=== PATIENT | female | born 1955 | race Caucasian/White ===

== ENCOUNTER → 2019-06-22 | Outpatient (CLI) | payer OTHER | END | disposition home or self-care (01) | LOC: PREOP 06:38 | PROVIDERS: ATTEND Surgery | DX: Z01.818 Encounter for other preprocedural examination (principal) ==

== ENCOUNTER 2019-07-21 05:36 | Outpatient (CLI) | payer OTHER ==
[~2019-07-21] VITALS: Ht 167.6 cm; Wt 70.3 kg
== END 2019-07-21 16:01 ==
LOC: PREOP 05:36
PROVIDERS: ATTEND Surgery
DX: Z01.818 Encounter for other preprocedural examination (principal)

== ENCOUNTER 2019-07-27 07:17 | Day surgery (SDC) | payer OTHER ==
[~2019-07-27] VITALS: Ht 167.6 cm; Wt 70.3 kg
[~2019-07-27 07:17] MED LIST: LACTATED RINGERS 1,000 ML IV ONE
[2019-07-27] MEDS ORDERED: ATROPINE INJ 0.4 MG/ML SDV IV ONE (07:18)
[2019-07-27] MEDS ORDERED: PROPOFOL INJECTION 50 ML IV ONE (07:25)
[2019-07-27] MEDS ORDERED: MIDAZOLAM 2 MG/2 ML (VERSED) VIAL ONE (07:25)
[2019-07-27 07:35] VITALS: BP 137/89
[2019-07-27] MEDS ORDERED: LACTATED RINGERS 1,000 ML IV STA (07:40)
[2019-07-27 08:35] VITALS: BP 142/87
[2019-07-27 08:40] VITALS: BP 139/75
--- NOTE | 2019-07-27 08:40 | Progress Note-Post Operative ---
Post-Operative Progess Note Surgeon (s)/Mounter Smoking Pipe (s) Surgeon SOPHIA LAMAR DO [employer] Smoking Pipe: none Pre-Operative Diagnosis Screening Post-Operative Diagnosis Diverticulosis Int Hemorrhoids Procedure & Operative Findings Date of Procedure 07/27/19 Procedure Performed/Findings colonoscopy Anesthesia Type IV sedation by SENIOR PRODUCT ANALYST Estimated Blood Loss Estimated blood loss (mL): none Specimens/Packing Specimens Removed none SOPHIA LAMAR DO Jul 27, 2019 08:40
--- NOTE | 2019-07-27 08:41 | Endoscopy Discharge Instruct ---
Endo Procedure/Findings Findings 1.: Diverticulosis 2.: Internal Hemorrhoids Discharge Instructions - Activity: You might feel a little sleepy until tomorrow. This is due to the medicine you received to relax you. Until tomorrow, you should: NOT drive a car, operate machinery or power tools. NOT drink any alcoholic beverages. NOT make any important decisions or sign importortant papers. Do not return to work until tomorrow, unless otherwise instructed. Resume previous activities tomorrow. Diet: Start by taking liquids. If you tolerate liquids, advance to solid food. make an appointmen for 7-10 days Notify Physician - If you experience excessive bleeding, unusual abdominal pain, fever, or chest pain, contact your doctor immediately. SOPHIA LAMAR DO Jul 27, 2019 08:41
[2019-07-27 08:45] VITALS: BP 139/68
[2019-07-27 09:15] VITALS: BP 127/57
[2019-07-27 09:20] VITALS: BP 127/57
--- NOTE | 2019-07-27 14:23 | Anesthesia-General Post-Op ---
MAC Patient Condition Mental Status/LOC: Same as Preop Cardiovascular: Satisfactory Nausea/Vomiting: Absent Respiratory: Satisfactory Pain: Controlled Complications: Absent Post Op Complications Complications None Follow Up Care/Instructions Patient Instructions None needed. Anesthesiology Discharge Order Discharge Order Patient is doing well, no complaints, stable vital signs, no apparent adverse anesthesia problems. No complications reported per nursing. SAHARA CARDOZA CRNA Jul 27, 2019 14:23
--- NOTE | 2019-07-27 15:14 | OPERATIVE REPORT ---
DATE OF SERVICE: PREOPERATIVE DIAGNOSES: Screening colonoscopy, remote history of polyps and also history of diverticula with possible diverticulitis. POSTOPERATIVE DIAGNOSES. Diverticulosis, internal hemorrhoids. PROCEDURE: Colonoscopy. SURGEON: Manish Cochran DO. RACQUET MAKER: None. ANESTHESIA: IV sedation by the URGENT CARE. SPECIMENS: None. BLOOD LOSS: None. FLUIDS: Per anesthesia. POSTOPERATIVE CONDITION: Stable. INDICATION FOR PROCEDURE: The patient is a 64-year-old female, who had a colonoscopy about 10 years ago, so she was due for her repeat screening. She thinks she saw polyps and she also has history of diverticulitis. FINDINGS: The patient had some diverticula throughout the colon and some internal hemorrhoids, but no other obvious pathology. PROCEDURE NOTE: After informed consent was obtained, the patient was brought to the endoscopy suite and placed in the left lateral decubitus position. She was administered IV sedation by the URGENT CARE, who monitored her vitals the entire time, heart rate, blood pressure, pulse ox and the scope was inserted, pushed all the way to about [address] way and noted diverticula, took a picture of this, able to get all the way to cecum, took a picture of appendiceal orifice, noted the ileocecal valve and then slowly withdrew the scope insufflating to look circumferentially at the patricio, looking the cecum, up the ascending colon to the hepatic flexure, then down the transverse colon, the splenic flexure, into the descending colon and then down into the sigmoid and then finally into the rectum, retroflexed in the rectal vault, saw some minimal internal hemorrhoids, took a picture of this and then removed the scope. The patient was recovered in endoscopy suite. Job ID: [id number] DocumentID: [id number] Dictated Date: 07/27/2019 08:39:25 Brim Stretching Machine Operator Date: 07/27/2019 15:14:06 Dictated By: MANISH COCHRAN DO
== END 2019-07-27 09:20 | disposition home or self-care (01) ==
LOC: ENDO 07:17
PROVIDERS: ATTEND Surgery
DX: Z12.11 Encounter for screening for malignant neoplasm of colon (principal); K64.8 Other hemorrhoids; E78.5 Hyperlipidemia, unspecified; Z86.010 Personal history of colon polyps; Z87.19 Personal history of other diseases of the digestive system; Z88.1 Allergy status to other antibiotic agents; Z88.0 Allergy status to penicillin

== ENCOUNTER → 2020-03-24 | Outpatient (CLI) | payer OTHER | LOC: CARD 08:35 | PROVIDERS: ATTEND Family Medicine | DX: I34.1 Nonrheumatic mitral (valve) prolapse (principal) | CPT/HCPCS: 93306 ==

== ENCOUNTER 2022-09-04 19:43 | Emergency (ER) | payer MEDICARE ==
[~2022-09-04] VITALS: Ht 167.7 cm; Wt 68.1 kg
[2022-09-04] MEDS ORDERED: TETANUS,DIPTH,PERTUSS P/F (BOOSTRIX) 0.5 ML VIAL IM ONE (20:15)
--- NOTE | 2022-09-04 20:19 | ED Integumentary General ---
General Chief Complaint: Skin/Wound Problems Stated Complaint: LEFT WRIST INJURY Source: patient Exam Limitations: no limitations History of Present Illness Date Seen by Provider: Sep 04, 2022 Time Seen by Provider: 19:50 Initial Comments Patient is a right-handed female presents with staple injury to left proximal palm. Patient was using an industrial staple gun at the time of accident when she accidentally discharge staple in her hand 30 minutes prior to ED arrival. The patient's spouse remove the nail. Patient's last known tetanus greater than 5 years. She reports tenderness swelling with paresthesias in the ulnar distribution. No motor weakness loss of sensation deformity or redness. No other symptoms or complaint. Timing/Duration: just prior to arrival Severity: mild Location: hands Possible Cause: other Modifying Factors: improves with other Allergies and Home Medications Allergies Coded Allergies: No Known Drug Allergies (Unverified , 07/21/19) Patient Home Medication List Home Medication List Reviewed: Yes No Active Prescriptions or Reported Meds Review of Systems Review of Systems Constitutional: see HPI Musculoskeletal: see HPI Past Oglhwkc-Fmjqjn-Npflma Hx Patient Social History Tobacco Use?: No Use of E-Cig and/or Vaping dev: No Substance use?: No Alcohol Use?: Yes Alcohol type: Wine Alcohol Frequency: Rarely Pt feels they are or have been: No Immunizations Up To Date Influenza Vaccine Up-to-Date: No; Not Current First/Initial COVID19 Vaccinat: date unk Second COVID19 Vaccination Amos: date un Third COVID19 Vaccination Date: date unk COVID19 Vaccine Mandrel Press Hand: 2 [employer], 1 TCM Bertha Seasonal Allergies Seasonal Allergies: Yes Past Medical History Surgery/Hospitalization HX: Spinal stenosis back surgery (rods), Hip surgery-nerve impingment Surgeries: Yes (hip scope, back sx, left toe sx) Gallbladder Respiratory: No Cardiac: Yes (MVP) Neurological: No Genitourinary: No Gastrointestinal: No Musculoskeletal: Yes Arthritis, Chronic Back Pain Endocrine: No HEENT: No Cancer: No Psychosocial: No Integumentary: No Blood Disorders: No Physical Exam Vital Signs Capillary Refill : General Appearance: WD/WN, no apparent distress Extremities: other (2 horizontal puncture wounds approximately 1 inch apart with dried blood consistent to left proximal palm. No active bleeding or deep tissue tenderness.) Neurologic/Psychiatric: normal mood/affect Progress/Results/Core Measures Results/Orders My Orders Orders - JAMAR MYLES DO Dipht,Pertuss(Acell),Tet Adult (Boostrix (09/04/22 20:15) Medications Given in ED Current Medications Medications Dose Ordered Sig/Balaji Route Start Time Stop Time Status Last Admin Dose Admin Diphtheria/ Tetanus/Acell Pertussis 0.5 ml ONCE ONCE IM 09/04/22 20:15 09/04/22 20:16 09/04/22 20:08 0.5 ML Departure Communication (Admissions) Tetanus updated. Recommendations are supportive care watchful waiting and PCP follow-up. Return precautions reviewed. Patient verbalizes understanding agreement discharge instructions prior to departure. Impression Primary Impression: Puncture wound of left hand Disposition: HOME, SELF-CARE Condition: Stable Departure-Patient Inst. Decision time for Depature: 20:19 Referrals: ALICIA SANCHEZ MD (PCP/Family) Primary Care Physician Patient Instructions: Wound Care Add. Discharge Instructions: You were evaluated in the emergency department for a puncture wound to your left hand. Please take ibuprofen for pain and apply ice to affected area. Limit left hand use until symptoms resolve. Return to the ED if signs of infection. All discharge instructions reviewed with patient and/or family. Voiced understanding. Scripts No Active Prescriptions or Reported Meds JMAAR MYLES DO Sep 04, 2022 20:19
[2022-09-04 20:23] VITALS: BP 139/92
== END 2022-09-04 20:23 | disposition home or self-care (01) ==
LOC: EDUNIT# 19:43 → ER FS 19:45
DX: S61.432A Puncture wound without foreign body of left hand, initial encounter (principal); Z23 Encounter for immunization; W29.4XXA Contact with nail gun, initial encounter
CPT/HCPCS: 90715; 99284